=== PATIENT | male | born 1985 | race Caucasian/White ===

== ENCOUNTER 2018-05-12 07:05 | Emergency (ER) | payer BC ==
[2018-05-12 07:19] VITALS: BP 150/66
[2018-05-12 07:37] LABS: Influenza A Molecular NEGATIVE (Negative); Influenza B Molecular NEGATIVE (Negative)
--- NOTE | 2018-05-12 07:49 | UC ---
Respiratory Complaint HPI - HPI Summary HPI Summary: 33-year-old male comes in with a chief complaint of cough and chills. Over the last month the patient has had 4 episodes where he's woke up in the middle night with chills and a cough. He's produced some sputum that has some blood in it. Most recent episode was last 2 evenings. Approximately 2 weeks ago the patient was having a headache associated with his symptoms. It was primarily frontal. Minimal rhinorrhea. Is also getting some myalgias when he has these episodes from the waist down. These start at his low back and goes down his legs. No measured fevers no sweats. No known exposure to ticks. 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 He also received his flu shot. He has noticed his urine is slightly dark. No dysuria. No history of prostatitis. No abdominal pain flank pain pelvic pain. Bowels been normal. Some nausea with the episodes. Did vomit 2 evenings ago. No edema or calf pain. 2 weeks ago he saw his primary care physician put him on amoxicillin and Flonase. He finished the amoxicillin 2 days ago. He had the cough for the chills last night. Today he does not have a headache. He does not feel short of breath at rest. He has been able to work out in the gym and go to work. He does not do aerobic exercises on a regular basis. - History of Current Complaint Chief Complaint: UCRespiratory Stated Complaint: FLU LIKE SYMP Time Seen by Provider: 05/12/18 07:15 Pain Intensity: 0 - Allergies/Home Medications Allergies/Adverse Reactions: Allergies Allergy/AdvReac Type Severity Reaction Status Date / Time No Known Allergies Allergy Verified 05/12/18 07:20 Home Medications: Home Medications Benzonatate CAP* [Tessalon 100 MG CAP*] 100 mg PO TID PRN 05/12/18 [History Confirmed 05/12/18] Ibuprofen TAB* [Advil TAB*] 200 mg PO Q6H PRN 05/12/18 [History Confirmed ] PMH/Surg Hx/FS Hx/Imm Hx Previously Healthy: Yes - Surgical History Surgical History: None - Family History Known Family History: Positive: Non-Contributory - Social History Alcohol Use: Rare Substance Use Type: None Smoking Status (MU): Never Smoked Tobacco Review of Systems All Other Systems Reviewed And Are Negative: Yes Constitutional: Positive: Chills. Negative: Fever, Fatigue Skin: Positive: Negative. Negative: Rash Eyes: Positive: Negative ENT: Positive: Sinus Congestion. Negative: Ear Ache Respiratory: Positive: Cough, Other - see hpi Cardiovascular: Positive: Negative Gastrointestinal: Positive: Vomiting, Nausea. Negative: Abdominal Pain, Diarrhea Genitourinary: Positive: Other - see hpi Motor: Positive: Negative Neurovascular: Positive: Negative Musculoskeletal: Positive: Myalgia Neurological: Positive: Headache Psychological: Positive: Negative Is Patient Immunocompromised?: No Physical Exam Triage Information Reviewed: Yes Appearance: Well-Appearing, No Pain Distress, Well-Nourished Vital Signs: Initial Vital Signs Temp 98.0 F 05/12/18 07:14 Pulse 68 05/12/18 07:14 Resp 16 05/12/18 07:14 BP 150/66 05/12/18 07:14 Pulse Ox 100 05/12/18 07:14 Vital Signs Reviewed: Yes Eye Exam: Normal Eyes: Positive: Conjunctiva Clear ENT: Positive: Pharynx normal, TMs normal Neck exam: Normal Neck: Positive: Supple, Nontender, No Lymphadenopathy Respiratory: Positive: Lungs clear, Normal breath sounds, No respiratory distress Cardiovascular: Positive: RRR Abdomen Description: Positive: Nontender, Soft. Negative: CVA Tenderness (R), CVA Tenderness (L) Bowel Sounds: Positive: Present Musculoskeletal Exam: Normal Musculoskeletal: Positive: Strength Intact, ROM Intact, No Edema, Other: - No calf tenderness Neurological: Positive: Alert, Muscle Tone Normal Psychological Exam: Normal Psychological: Positive: Age Appropriate Behavior Skin Exam: Normal Respiratory Course/Dx - Course Course Of Treatment: Patient Name: AGNES WHITESIDE Medical Record#: [id number] Ordering Physician: Brandon Pino MD Acct.#: [id number] : 1985 Age: 33 Sex: M Location: [facility] Exam Date: 05/12/18740 ADM Status: [facility] ER Order Information: CHEST PA LAT 2 VWS Accession Number: [id number] CPT: 99656 Indication: Hemoptysis, chills and cough. 2 views of the chest demonstrates no mediastinal shift. There is cardiomegaly. Lung donovan show no pleural fluid, pneumonia or pneumothorax. IMPRESSION: No active cardiopulmonary disease is noted. <Electronically signed by Andree Monroy MD in OV> 05/12/18 0809 I discussed the x-ray report with the patient. Because the symptoms are primarily respiratory and not cured by amoxicillin the plan is to treat with doxycycline. Labwork pending is a CRP CBC CMP TSH and Lyme screen. Overall the plan is to see if the doxycycline helps with the symptoms and have the patient follow-up his primary care physician. Because the episodes of been occurring mostly at night there is a possibility of GERD causing the symptoms. We discussed GERD treatment to include omeprazole 20 mg twice a day and sleeping with the bed propped up. Visual follow-up with his primary care physician reevaluation sooner if worse or any other questions or concerns. - Differential Dx/Diagnosis Provider Diagnosis: Hemoptysis, Cough, Myalgia Discharge - Sign-Out/Discharge Documenting (check all that apply): Patient Departure All imaging exams completed and their final reports reviewed: Yes - Discharge Plan Condition: Stable Disposition: HOME Prescriptions: DOXYcycline CAP(*) [DOXYcycline 100MG CAP(*)] 100 mg PO BID #20 cap Omeprazole 20 mg PO BID #30 capsule. Patient Education Materials: Gastroesophageal Reflux Disease (ED), Chronic Cough (ED), Hemoptysis (ED) Referrals: Vandana Pierre PA [Primary Care Provider] - Jim Andujar NP [Nurse Practitioner] - Additional Instructions: FOLLOW UP WITH YOUR DOCTOR. GET RECHECKED SOONER FOR ANY WORSENING OF YOUR CONDITION OR QUESTIONS OR CONCERNS. - Billing Disposition and Condition Condition: STABLE Disposition: Home
[2018-05-12 11:50] LABS: ABS Basophils 0 10^3/ul (0-0.2); ABS Eosinophils 0.3 10^3/ul (0-0.6); ABS Lymphocytes 1.2 10^3/ul (1.0-4.8); ABS Monocytes 0.3 10^3/ul (0-0.8); ABS Neutrophils 15.4 10^3/ul (1.5-7.7); ABS Nucleated RBC 0 10^3/ul; Eosinophil % 1.8 %; Hematocrit 43 % (36-46); Hemoglobin 14.1 g/dL (14.0-18.0); Lymphocyte % 6.8 %; Mean Corpuscular HGB Conc 33 g/dL (31-36); Mean Corpuscular Hemoglobin 30 pg (27-31); Mean Corpuscular Volume 90 fL (80-94); Mean Platelet Volume 10.9 fL (7.4-10.4); Nucleated Red Blood Cells % 0.1; Platelet Count 137 10^3/uL (150-450); Red Blood Count 4.77 10^6 /uL (4.18-5.48); Red Cell Distribution Width 13 % (10.5-15); White Blood Count 17.3 10^3/uL (3.5-10.8)
[2018-05-12 11:54] LABS: Albumin 4.5 g/dL (3.2-5.2); Calcium 9.8 mg/dL (8.6-10.3); Potassium 4.1 mmol/L (3.5-5.0); Total Bilirubin 0.9 mg/dL (0.2-1.0)
[2018-05-12 12:00] LABS: BUN/Creatinine Ratio 15.7 (8-20); C Reactive Protein 132.03 mg/L (<8.01); EGFR African American 120.6 (>60); EGFR Non-African American 99.7 (>60); Globulin 2.3 g/dL (2-4); Total Protein 6.8 g/dL (6.4-8.9)
[2018-05-12 12:17] LABS: TSH (Thyroid Stimulating Horm) 1.39 mcIU/mL (0.34-5.60)
--- NOTE | 2018-05-13 10:26 | UC ---
- Progress Note Progress Note: PLEASE CALL PATIENT. BLOOD WORK SHOWS ELEVATED WHITE BLOOD CELL COUNT AND ELEVATED NEUTROPHILS. CRP IS ALSO SIGNIFICANTLY ELEVATED. THIS IS CONSISTENT WITH A POSSIBLE BACTERIAL INFECTION. CONTINUE DOXYCYCLINE. ENSURE PATIENT HAS FOLLOW-UP WITH HIS PCP IN THE NEXT DAY OR 2 HE WILL NEED THESE LABS REPEATED. GO TO THE ER WITHOUT FAIL IF HIS SYMPTOMS WORSEN. Course/Dx - Diagnoses Provider Diagnoses: Hemoptysis, Cough, Myalgia Discharge - Sign-Out/Discharge Documenting (check all that apply): Post-Discharge Follow Up All imaging exams completed and their final reports reviewed: Yes - Discharge Plan Condition: Stable Disposition: HOME Prescriptions: Benzonatate CAP* [Tessalon 100 MG CAP*] 100 mg PO TID PRN #20 cap PRN Reason: Cough DOXYcycline CAP(*) [DOXYcycline 100MG CAP(*)] 100 mg PO BID #20 cap Omeprazole 20 mg PO BID #30 capsule. Patient Education Materials: Gastroesophageal Reflux Disease (ED), Chronic Cough (ED), Hemoptysis (ED) Referrals: Vandana Pierre PA [Primary Care Provider] - Jim Andujar NP [Nurse Practitioner] - Additional Instructions: FOLLOW UP WITH YOUR DOCTOR. GET RECHECKED SOONER FOR ANY WORSENING OF YOUR CONDITION OR QUESTIONS OR CONCERNS. - Billing Disposition and Condition Condition: STABLE Disposition: Home
== END 2018-05-12 08:45 | disposition home or self-care (01) ==
LOC: UCEAST 07:05
DX: R05 Cough (principal); M79.10 Myalgia, unspecified site; R04.2 Hemoptysis; J34.89 Other specified disorders of nose and nasal sinuses
CPT/HCPCS: 36415; 71046; 80053; 81003; 84443; 85025; 86140; 86618; 99212; G0463

== ENCOUNTER 2018-09-08 07:05 | Emergency (ER) | payer BC ==
[2018-09-08 07:18] VITALS: BP 148/83
--- NOTE | 2018-09-08 07:28 | UC ---
Lower Extremity/Ankle HPI - HPI Summary HPI Summary: 33-year-old male comes in with a chief complaint of left foot pain. He accidentally dropped a weight on it 2 days ago. Pains in the distal lateral foot. Pain is worse with weightbearing and flexion of the foot. He does have ecchymosis. No skin break. No weakness or numbness. - History of Current Complaint Chief Complaint: UCLowerExtremity Stated Complaint: FOOT INJURY Time Seen by Provider: 09/08/18 07:12 Pain Intensity: 0 - Allergies/Home Medications Allergies/Adverse Reactions: Allergies Allergy/AdvReac Type Severity Reaction Status Date / Time No Known Allergies Allergy Verified 09/08/18 07:12 Home Medications: Home Medications NK [No Home Medications Reported] 09/08/18 [History Confirmed 09/08/18] PMH/Surg Hx/FS Hx/Imm Hx Previously Healthy: Yes - Surgical History Surgical History: None - Family History Known Family History: Positive: Non-Contributory - Social History Alcohol Use: None Substance Use Type: None Smoking Status (MU): Never Smoked Tobacco Review of Systems All Other Systems Reviewed And Are Negative: Yes Constitutional: Positive: Negative Skin: Positive: Bruising Eyes: Positive: Negative ENT: Positive: Negative Respiratory: Positive: Negative Cardiovascular: Positive: Negative Gastrointestinal: Positive: Negative Motor: Positive: Negative Neurovascular: Positive: Negative Musculoskeletal: Positive: Other: - see hpi Neurological: Positive: Negative Psychological: Positive: Negative Is Patient Immunocompromised?: No Physical Exam Triage Information Reviewed: Yes Appearance: Well-Appearing, No Pain Distress, Well-Nourished Vital Signs: Initial Vital Signs Temp 98.8 F 09/08/18 07:12 Pulse 65 09/08/18 07:12 Resp 16 09/08/18 07:12 BP 148/83 09/08/18 07:12 Pulse Ox 99 09/08/18 07:12 Vital Signs Reviewed: Yes Eye Exam: Normal Eyes: Positive: Conjunctiva Clear Neck: Positive: Supple Respiratory: Positive: No respiratory distress Musculoskeletal: Positive: Other: - Ecchymosis of the left foot over the distal left fourth and fifth metatarsals and toes. No sensation deficit normal capillary refill. All the toes have full range of motion full-strength. The ankle is nontender to palpation with full range of motion and full strength. Neurological: Positive: Alert, Muscle Tone Normal Psychological: Positive: Age Appropriate Behavior Skin: Positive: Other - Ecchymosis of the left foot over the distal fourth and fifth metatarsals and toes. Normal sensation normal capillary refill. Lower Extremity Course/Dx - Course Course Of Treatment: Patient Name: AGNES WHITESIDE Medical Record#: [id number] Ordering Physician: Brandon Pino MD Acct.#: [id number] : 1985 Age: 33 Sex: M Location: [facility] Exam Date: 09/08/18717 ADM Status: REG ER Order Information: FOOT LEFT 3+ VWS Accession Number: [id number] CPT: 79591 INDICATION: Left foot injury. TECHNIQUE: 3 views of the left foot were obtained. FINDINGS: There is a transverse fracture of the distal metaphysis of the fourth proximal phalanx. The fracture fragments are slightly displaced. Joint spaces appear maintained. IMPRESSION: SLIGHTLY DISPLACED FRACTURE OF THE FOURTH PROXIMAL PHALANX. <Electronically signed by Jake Smith MD in OV> 09/08/18743 I discussed the x-rays with the patient. Patient was placed a postop shoe by nursing he is neurovascularly intact placement of the postop shoe. With the toe fracture use the postop shoe chato taping eyes anti-inflammatories and follow-up with orthopedics. - Differential Dx/Diagnosis Provider Diagnosis: Contusion of left foot including toes, Fracture of toe of left foot Discharge - Sign-Out/Discharge Documenting (check all that apply): Patient Departure All imaging exams completed and their final reports reviewed: Yes - Discharge Plan Condition: Stable Disposition: HOME Patient Education Materials: Toe Fracture (ED), Foot Contusion (ED) Referrals: Bebo Smith MD [Medical Doctor] - Jim Andujar NP [Primary Care Provider] - Additional Instructions: FOLLOW UP WITH ORTHOPEDICS, DR SMITH. GET RECHECKED SOONER IF YOUR CONDITION WORSENS OR ANY QUESTIONS OR CONCERNS. - Billing Disposition and Condition Condition: STABLE Disposition: Home
== END 2018-09-08 08:07 | disposition home or self-care (01) ==
LOC: UCEAST 07:05
DX: S90.32XA Contusion of left foot, initial encounter (principal); S92.502A Displaced unspecified fracture of left lesser toe(s), initial encounter for closed fracture; W20.8XXA Other cause of strike by thrown, projected or falling object, initial encounter; Y93.B3 Activity, free weights; Y92.9 Unspecified place or not applicable; Y99.8 Other external cause status
CPT/HCPCS: 99212; G0463

== ENCOUNTER 2018-12-22 07:31 | Emergency (ER) | payer BC ==
[2018-12-22 07:41] VITALS: BP 160/58
--- NOTE | 2018-12-22 07:56 | UC ---
General HPI - HPI Summary HPI Summary: Patient is a 33-year-old gentleman who states he woke around 3:30 4:00 this morning with body aches and fevers. Patient states he also had some chills. Patient states this morning he had some at nausea and one episode of vomiting. Patient states that this time his nausea is improved. Patient took some over- the-counter cough and cold medication. Patient denies ear pain sore throat sinus congestion. Patient without any rashes. Patient states possibly 2 months ago he had similar symptoms that he was treated with a course of amoxicillin and amoxicillin with improvement. Patient does state he had a tick bite approximately 3 weeks ago. 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 Patient has not traveled country. Patient did receive flu vaccine this year. Patient is not admitted. Patient had mono. Patient's medications review this visit - History of Current Complaint Chief Complaint: UCGeneralIllness Stated Complaint: FEVER CHILLS VOMITING Time Seen by Provider: 12/22/18 07:54 Hx Obtained From: Patient Onset Severity: Mild Current Severity: Mild Pain Intensity: 2 - Allergy/Home Medications Allergies/Adverse Reactions: Allergies Allergy/AdvReac Type Severity Reaction Status Date / Time No Known Allergies Allergy Verified 12/22/18 07:42 PMH/Surg Hx/FS Hx/Imm Hx Previously Healthy: Yes - Surgical History Surgical History: None - Family History Known Family History: Positive: Non-Contributory - Social History Occupation: Employed Full-time Lives: With Family Alcohol Use: Occasionally Substance Use Type: None Smoking Status (MU): Never Smoked Tobacco Review of Systems All Other Systems Reviewed And Are Negative: Yes Constitutional: Positive: Fever, Fatigue Skin: Positive: Negative Eyes: Positive: Negative ENT: Positive: Negative Gastrointestinal: Positive: Vomiting, Nausea Motor: Positive: Negative Musculoskeletal: Positive: Arthralgia Is Patient Immunocompromised?: No Physical Exam - Summary Physical Exam Summary: Vital Signs Reviewed: Yes A+Ox3, tired appearing Eyes: Conjunctiva Clear, BUCKY. EOM intact and full ENT: Hearing grossly normal TM x 2 clear, turbinates mmoist, lips dry, uvula midline, no exudate, no erythema Neck: Positive: Supple Respiratory: Positive: No respiratory distress, No accessory muscle use + CTA throughout no w/r Cardiovascular: RRR nl s1, s2 no m/r CBT <2 sec abd soft + BS nt/nd no guarding, no distension Musculoskeletal Exam: BURNETT x 4 without difficulty Strength Intact, ROM Intact Neurological: Positive: Alert, + sensation throughout Psychological: Positive: Normal Response To examiner Skin: Positive: no rash, no ecchymosis, Triage Information Reviewed: Yes Vital Signs: Initial Vital Signs Temp 100.1 F 12/22/18 07:37 Pulse 90 12/22/18 07:37 Resp 18 12/22/18 07:37 BP 160/58 12/22/18 07:37 Pulse Ox 99 12/22/18 07:37 Course/Dx - Course Course Of Treatment: Patient's a 33-year-old gentleman presents with less than 10 hours of bodyaches fevers episode of nausea and vomiting. Patient states congestion. Patient reports myalgias. 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 Patient negative flu vaccine. Patient is not immunocompromised and is on no medications. On exam patient's blood pressure slightly increased. Likely related to today's visit as well as he took a decongestant. On exam patient tired appearing but nothing focal. No rash. Patient did have a tick bite approximately 3 weeks ago. We'll check influenza test negative will draw blood work to look for mono, lyme disease, chemistry Pt comfortable and in agreement with plan Will give Rx zofran work note secretion precaution return precaution pt comfortable and in agreement with plan - Diagnoses Provider Diagnosis: Fever, Myalgia Discharge ED - Sign-Out/Discharge Documenting (check all that apply): Patient Departure All imaging exams completed and their final reports reviewed: No Studies - Discharge Plan Condition: Stable Disposition: HOME Prescriptions: Ondansetron ODT TAB* [Zofran 4 MG Odt TAB*] 4 mg PO Q6H PRN #10 tab.odt PRN Reason: Nausea Patient Education Materials: Fever in Adults (ED), Arthralgia (ED) Forms: *Gen. Provider Communication, *Work Release Referrals: Jim Andujar NP [Primary Care Provider] - Additional Instructions: - The doctor that evaluated did not find obvious cause for your symptoms. It is likely this is a viral syndrome. Your flu test was negative today. You have blood work drawn to test for mono, lyme disease, and to check your electrolytes. These results take 2-3 days to come back. You will receive a call from a care steam plant operator if there are any concerning findings - Okay to alternate ibuprofen (Advil, Motrin) and Tylenol (acetaminophen) every 3 hours for pain or fever. Take with food. Do NOT take for more than 4-5 days. - It is important to stay hydrated. Drink plenty of nonalcoholic, non- caffeinated beverages. - He has been given a perception for Zofran for nausea. Okay to take as prescribed. For the first 6 hours, eat and drink clears (water, kris mazin, soup broth, jello, popsicles, Gatorade). If you tolerate this okay, add bland foods such as dry toast, scrambled eggs, crackers. Wait until you are feeling better for 24 hours before eating spicy food, acidic food, tomato based food, fried food. - get plenty of restful sleep - For the first 6 hours, eat and drink clears (water, kris mazin, soup broth, jello, popsicles, Gatorade). If you tolerate this okay, add bland foods such as dry toast, scrambled eggs, crackers. Wait until you are feeling better for 24 hours before eating spicy food, acidic food, tomato based food, fried food. - If you develop uncontrolled fevers, pain, vomiting, shortness of breath or any other concerns it is recommended you contact your primary provider, return here or go to the emergency department - Billing Disposition and Condition Condition: STABLE Disposition: Home
[2018-12-22 08:24] LABS: Influenza A Molecular NEGATIVE (Negative); Influenza B Molecular NEGATIVE (Negative)
[2018-12-22 12:12] LABS: Albumin 4.7 g/dL (3.2-5.2); Magnesium 1.7 mg/dL (1.9-2.7); Potassium 4.4 mmol/L (3.5-5.0); Total Bilirubin 1.2 mg/dL (0.2-1.0)
[2018-12-22 12:18] LABS: Albumin/Globulin Ratio 1.9 (1-3); BUN/Creatinine Ratio 21.9 (8-20); EGFR African American 99.7 (>60); EGFR Non-African American 82.4 (>60); Globulin 2.5 g/dL (2-4); Total Protein 7.2 g/dL (6.4-8.9)
[2018-12-22 13:35] LABS: ABS Lymphocytes 0.5 10^3/ul (1.0-4.8); ABS Monocytes 0.6 10^3/ul (0-0.8); ABS Neutrophils 14.1 10^3/ul (1.5-7.7); Eosinophil % 0.3 %; Hematocrit 47 % (42-52); Hemoglobin 15.7 g/dL (14.0-18.0); Lymphocyte % 3.3 %; Mean Corpuscular HGB Conc 34 g/dL (31-36); Mean Corpuscular Hemoglobin 30 pg (27-31); Mean Corpuscular Volume 89 fL (80-94); Mean Platelet Volume 10.9 fL (7.4-10.4); Nucleated Red Blood Cells % 0.2; Platelet Count 103 10^3/uL (150-450); Red Blood Count 5.26 10^6 /uL (4.18-5.48); Red Cell Distribution Width 13 % (10-15); White Blood Count 15.3 10^3/uL (3.5-10.8)
--- NOTE | 2018-12-23 07:24 | UC ---
- Progress Note Progress Note: Seen yesterday with acute illness, fever and chills. Lab work shows and elevated white count, normal electrolytes aside from a mild decrease in magnesium. mild increase in liver function. Please ensure that he has follow up with his primary doctor if not feeling better to determine if more work up is needed. Lyme is still pending. Course/Dx - Diagnoses Provider Diagnoses: Fever, Myalgia Discharge ED - Sign-Out/Discharge Documenting (check all that apply): Post-Discharge Follow Up All imaging exams completed and their final reports reviewed: No Studies - Discharge Plan Condition: Stable Disposition: HOME Prescriptions: Ondansetron ODT TAB* [Zofran 4 MG Odt TAB*] 4 mg PO Q6H PRN #10 tab.odt PRN Reason: Nausea Patient Education Materials: Fever in Adults (ED), Arthralgia (ED) Forms: *Gen. Provider Communication, *Work Release Referrals: Jim Andujar, FEATHER SAWYER [Primary Care Provider] - Additional Instructions: - The doctor that evaluated did not find obvious cause for your symptoms. It is likely this is a viral syndrome. Your flu test was negative today. You have blood work drawn to test for mono, lyme disease, and to check your electrolytes. These results take 2-3 days to come back. You will receive a call from a care steam pan sponger if there are any concerning findings - Okay to alternate ibuprofen (Advil, Motrin) and Tylenol (acetaminophen) every 3 hours for pain or fever. Take with food. Do NOT take for more than 4-5 days. - It is important to stay hydrated. Drink plenty of nonalcoholic, non- caffeinated beverages. - He has been given a perception for Zofran for nausea. Okay to take as prescribed. For the first 6 hours, eat and drink clears (water, kris mazin, soup broth, jello, popsicles, Gatorade). If you tolerate this okay, add bland foods such as dry toast, scrambled eggs, crackers. Wait until you are feeling better for 24 hours before eating spicy food, acidic food, tomato based food, fried food. - get plenty of restful sleep - For the first 6 hours, eat and drink clears (water, kris mazin, soup broth, jello, popsicles, Gatorade). If you tolerate this okay, add bland foods such as dry toast, scrambled eggs, crackers. Wait until you are feeling better for 24 hours before eating spicy food, acidic food, tomato based food, fried food. - If you develop uncontrolled fevers, pain, vomiting, shortness of breath or any other concerns it is recommended you contact your primary provider, return here or go to the emergency department - Billing Disposition and Condition Condition: STABLE Disposition: Home
[2018-12-23 15:27] LABS: EBV Capsid Ag IgG Ab Negative (Negative); EBV Capsid Ag IgM Ab Negative (Negative); Epstein-Barr Nuclear Antigen Negative (Negative)
== END 2018-12-22 08:40 | disposition home or self-care (01) ==
LOC: UCEAST 07:31
DX: R50.9 Fever, unspecified (principal); M79.10 Myalgia, unspecified site; R11.2 Nausea with vomiting, unspecified; R05 Cough; R53.83 Other fatigue
CPT/HCPCS: 36415; 80053; 83735; 85025; 86308; 86618; 86664; 86665; 99212; G0463